=== PATIENT | male | born 1965 | race Two or more races ===

== ENCOUNTER 2018-11-12 15:00 | Inpatient (IN) | payer MEDICAID ==
[~2018-11-12] VITALS: Ht 152.4 cm; Wt 111.6 kg
[2018-11-12 15:26] LABS: BASOPHILS % 0.9 % (0.0-2.0); EOSINOPHILS % 1.7 % (0.0-5.0); HEMATOCRIT. 45.2 % (42.0-52.0); HEMOGLOBIN. 15.5 g/dL (14.0-18.0); LYMPHOCYTES % 28.1 % (20.0-50.0); MEAN CORPUSCULAR HEMOGLOBIN 31.1 pg (28.0-32.0); MONOCYTES % 8.9 % (2.0-8.0); NEUTROPHILS % 60.4 % (40.0-76.0); PLATELET 252 x1000/uL (130-400); RED BLOOD CELL COUNT 4.97 mill/uL (4.7-6.1); RED CELL DISTRIBUTION WIDTH 14.2 % (11.6-14.6)
[2018-11-12 15:29] LABS: CHLORIDE 107 mEq/L (98-107)
[2018-11-12 15:31] LABS: PROTHROMBIN TIME 10.2 sec (9.6-11.0)
[2018-11-12 15:34] LABS: ETHANOL BLOOD < 10 mg/dL
[2018-11-12 15:37] LABS: LDL CHOLESTEROL 52 mg/dL (5-100)
[2018-11-12] MEDS ORDERED: SODIUM CHLORIDE 0.9% 1,000 ML IV NR (15:56)
[2018-11-12 16:16] LABS: CLARITY URINE CLEAR (CLEAR); COLOR URINE YELLOW (YELLOW); KETONES URINE NEGATIVE (NEGATIVE); LEUKOCYTE ESTERASE URINE NEGATIVE (NEGATIVE); NITRITE URINE NEGATIVE (NEGATIVE); OCCULT BLOOD URINE NEGATIVE (NEGATIVE); PROTEIN URINE NEGATIVE (NEGATIVE); SPECIFIC GRAVITY URINE 1.022 (1.005-1.030); UROBILINOGEN URINE 0.2 E.U./dL (0.2-1.0)
[2018-11-12 16:38] LABS: *AMPHETAMINES SCREEN URINE NEGATIVE (NEGATIVE); *BARBITURATES SCREEN URINE NEGATIVE (NEGATIVE); *BENZODIAZEPINES SCREEN URINE NEGATIVE (NEGATIVE); *COCAINE SCREEN URINE NEGATIVE (NEGATIVE); METHADONE URINE SCREEN NEGATIVE (NEGATIVE); OPIATES URINE SCREEN NEGATIVE (NEGATIVE)
[2018-11-12 16:39] LABS: CANNABINOID URINE SCREEN NEGATIVE (NEGATIVE); PHENCYCLIDINE URINE SCREEN NEGATIVE (NEGATIVE)
[2018-11-12] MEDS ORDERED: ASPIRIN 325MG EC TABLET PO ONE (17:00)
[2018-11-12] MEDS ORDERED: ONDANSETRON HCL 4MG/2ML INJ IV PRN (17:30)
[2018-11-12] MEDS ORDERED: CLONIDINE 0.1MG TABLET PO PRN (17:30)
[2018-11-12] MEDS ORDERED: IPRATROPIUM/ALBUTEROL 0.5-3(2.5)MG/3ML NEB INH PRN (17:30)
[2018-11-12] MEDS ORDERED: ACETAMINOPHEN 325MG TABLET PO PRN (17:30)
[2018-11-12] MEDS ORDERED: GUAIFENESIN 200MG/10ML SUGAR FREE UDC PO PRN (17:30)
[2018-11-12] MEDS ORDERED: DOCUSATE SODIUM 100MG CAPSULE PO PRN (17:30)
[2018-11-12] MEDS ORDERED: MAGNESIUM/ALUMINUM HYDROXIDE/SIMETHICONE 30ML UDC PO PRN (17:30)
[2018-11-12] MEDS ORDERED: ENOXAPARIN 40MG/0.4ML SYR SUBCUT SCH (17:30)
[2018-11-12] MEDS ORDERED: NITROGLYCERIN 0.4MG TABLET SL SL PRN (17:30)
[2018-11-12] MEDS ORDERED: IOHEXOL-350 100 ML BOTTLE ONE (17:58)
[2018-11-12] MEDS ORDERED: HALOPERIDOL LACTATE 5MG/ML VIAL IM PRN (18:00)
[2018-11-12] MEDS ORDERED: KETOROLAC 15MG/ML VIAL IV PRN (18:00)
[2018-11-12] MEDS ORDERED: ZOLPIDEM TARTRATE 5MG TABLET PO PRN (21:00)
[2018-11-12] MEDS: FAMOTIDINE 20MG TABLET PO SCH (23:06)
[2018-11-12 23:42] VITALS: BP 123/81
[2018-11-13] VITALS (7 sets, daily range): BP systolic 106–134; BP diastolic 69–85
[2018-11-13] MEDS ORDERED: QUET50TA13 PO (00:04)
[2018-11-13] MEDS ORDERED: ALBUL MT (00:04)
[2018-11-13] MEDS ORDERED: LIP40 PO (00:08)
[2018-11-13] MEDS ORDERED: FLUT1AER IH (00:08)
[2018-11-13] MEDS ORDERED: QUET300T5 PO (00:08)
[2018-11-13] MEDS ORDERED: NAPR-1176 PO (00:08)
[2018-11-13] MEDS ORDERED: HYDR25TA PO (00:08)
[2018-11-13] MEDS ORDERED: ASPI-1159 MT (00:08)
[2018-11-13] MEDS ORDERED: GABA300C PO (00:09)
[2018-11-13 00:41] LABS: CREATINE KINASE 405 IU/L (39-308)
[2018-11-13 00:43] LABS: CREATINE KINASE MB FRACTION 3.4 ng/mL (0.5-3.6)
[2018-11-13 06:48] LABS: CREATINE KINASE 335 IU/L (39-308); CREATINE KINASE MB FRACTION 2.8 ng/mL (0.5-3.6)
[2018-11-13] MEDS: FAMOTIDINE 20MG TABLET PO SCH (08:48)
[2018-11-13] MEDS ORDERED: ENOXAPARIN 30MG/0.3ML SYR SUBCUT SCH (09:00)
[2018-11-13] MEDS ORDERED: ASPIRIN 325MG EC TABLET PO SCH (09:00)
[2018-11-13] MEDS ORDERED: LORAZEPAM 2MG/ML CPJ IV NR (09:45)
== END 2018-11-13 15:20 | disposition home or self-care (01) | DRG 58 ==
LOC: ER 15:00 → 6WST 16:58 → EDBEDREQ 17:12 → EDBEDREQSVC 20:16 → ENRESERV 20:56
PROVIDERS: ADMIT Internal Medicine; ATTEND Internal Medicine
DX: G81.94 Hemiplegia, unspecified affecting left nondominant side (principal); E11.9 Type 2 diabetes mellitus without complications; R53.1 Weakness; F17.210 Nicotine dependence, cigarettes, uncomplicated; I10 Essential (primary) hypertension; F99 Mental disorder, not otherwise specified; W18.39XA Other fall on same level, initial encounter; Y93.89 Activity, other specified; Y92.89 Other specified places as the place of occurrence of the external cause; Y99.8 Other external cause status; Z79.899 Other long term (current) drug therapy
CPT/HCPCS: 36415; 70496; 70498; 70551; 71045; 80061; 80305; 80320; 82550; 82553; 82962; 83036; 83721; 84484; 93005; 93306; 93970; 94640; 96360; 96361; 99291; C1893; J1650; J1885; J2060; Q9967; G0480